=== PATIENT | female | born 1995 | race Two or more races ===

== ENCOUNTER 2023-12-22 03:26 | Emergency (ER) | payer OTHER ==
[~2023-12-22] VITALS: Ht 167.6 cm; Wt 93.0 kg
[~2023-12-22 03:26] MED LIST: FERRO-PLEX PO; OXYC1TAB9 PO; TRANDATE PO
[2023-12-22 04:58] LABS: HEMATOCRIT 33.8 % (36.0-45.00); HEMOGLOBIN 12.3 g/dL (12.0-15.00); MEAN CELL VOLUME 85.9 fL (80.00-100.00); MEAN CORPUSCULAR HEMOGLOBIN 31.4 pg (27.00-32.0); MEAN CORPUSCULAR HGB CONC 36.6 g/dl (32.0-36.0); PLATELET COUNT 321 K/uL (150-450); RED BLOOD COUNT 3.93 M/uL (4.00-6.00); RED CELL DISTRIBUTION WIDTH 14.3 % (11.5-14.5)
[2023-12-22 05:10] LABS: ALBUMIN 4.1 gm/dL (3.4-5.0); BILIRUBIN TOTAL 0.28 mg/dL (0.3-1.2); CALCIUM 9.3 mg/dL (8.5-10.1); CREATININE SERUM 0.88 mg/dL (0.55-1.02); GFR 77.08; GLOBULINA 4.2 G/DL (2.4-3.5); POTASSIUM 3.6 mEq/L (3.5-5.1); TOTAL PROTEIN 8.3 gm/dL (6.4-8.2)
[2023-12-22 05:16] LABS: PH,URINE 6.5 (5.0-8.0); URINE APPEARANCE Cloudy; URINE BILIRRUBIN Negative (NEGATIVE); URINE BLOOD Large; URINE COLOR Yellow; URINE GLUCOSE Negative (NEGATIVE); URINE LEUKOCYTE Trace; URINE NITRATE Negative
[2023-12-22 05:17] LABS: URINE BACTERIA 372.9 uL (0.0-1933); URINE EPITHELIAL CELLS 30.6 uL (0.0-38.8); URINE RBC 891.1 uL (0.0-20.8); URINE WBC 25.8 uL (0.0-23.2)
[2023-12-22 05:43] LABS: URINE PROTEIN 100 (NEGATIVE)
== END 2023-12-22 10:22 | disposition home or self-care (01) ==
LOC: ER 03:26
PROVIDERS: General Practice
DX: N13.2 Hydronephrosis with renal and ureteral calculous obstruction (principal)

== ENCOUNTER 2024-02-07 17:53 | Emergency (ER) | payer OTHER ==
[~2024-02-07] VITALS: Ht 152.4 cm; Wt 92.1 kg
[2024-02-07] MEDS ORDERED: KETOROLAC TROMETHAMINE 30 MG VIAL IV ONE (18:45)
[2024-02-07] MEDS ORDERED: MEPERIDINE HCL/PF 25 MG/ML VIAL IV ONE (18:45)
[2024-02-07] MEDS ORDERED: 0.9 % SODIUM CHLORIDE 1,000 ML IV SCH (18:45)
[2024-02-07 18:57] LABS: PH,URINE 5.5 (5.0-8.0); URINE APPEARANCE Clear; URINE BILIRRUBIN Negative (NEGATIVE); URINE BLOOD Small; URINE COLOR Yellow; URINE GLUCOSE Negative (NEGATIVE); URINE LEUKOCYTE Negative; URINE NITRATE Negative; URINE UROBILINOGEN 0.2 E.U./dl
[2024-02-07 19:00] LABS: HEMOGLOBIN 12.7 g/dL (12.0-15.00); MEAN CELL VOLUME 79.5 fL (80.00-100.00); MEAN CORPUSCULAR HGB CONC 35.2 g/dl (32.0-36.0); PLATELET COUNT 275 K/uL (150-450); RED BLOOD COUNT 4.53 M/uL (4.00-6.00); RED CELL DISTRIBUTION WIDTH 14.4 % (11.5-14.5)
[2024-02-07 19:01] LABS: URINE BACTERIA 20.1 uL (0.0-1933); URINE EPITHELIAL CELLS 12.9 uL (0.0-38.8); URINE RBC 53.6 uL (0.0-20.8); URINE WBC 21.1 uL (0.0-23.2)
[2024-02-07 19:02] LABS: URINE PROTEIN 100 (NEGATIVE)
[2024-02-07 19:58] LABS: CREATININE SERUM 0.9 mg/dL (0.55-1.02); GFR 75.11; POTASSIUM 4.09 mEq/L (3.5-5.1)
[2024-02-07] MEDS ORDERED: MEPERIDINE HCL 25 MG/ML AMPUL IV ONE (22:15)
[2024-02-07 23:15] LABS: HEMATOCRIT 34.4 % (36.0-45.00); HEMOGLOBIN 11.9 g/dL (12.0-15.00); MEAN CELL VOLUME 80.2 fL (80.00-100.00); MEAN CORPUSCULAR HEMOGLOBIN 27.8 pg (27.00-32.0); MEAN CORPUSCULAR HGB CONC 34.7 g/dl (32.0-36.0); PLATELET COUNT 246 K/uL (150-450); RED BLOOD COUNT 4.29 M/uL (4.00-6.00); RED CELL DISTRIBUTION WIDTH 14.3 % (11.5-14.5)
[2024-02-07] MEDS ORDERED: PROMETHAZINE HCL 25 MG/ML AMPUL IM ONE (23:45)
[2024-02-07] MEDS ORDERED: MEPERIDINE HCL 25 MG/ML AMPUL IM ONE (23:45)
== END 2024-02-08 00:17 | disposition home or self-care (01) ==
LOC: ER 17:53
PROVIDERS: Emergency Medicine
DX: N20.9 Urinary calculus, unspecified (principal); R10.2 Pelvic and perineal pain; I10 Essential (primary) hypertension